=== PATIENT | female | born 2005 | race Hispanic/Latino ===

== ENCOUNTER 2024-07-15 22:45 | Emergency (ER) | payer MEDICAID ==
[2024-07-15] MEDS ORDERED: Ondansetron PF 4 MG/2 ML Vial ONE (23:11)
[2024-07-15 23:38] LABS: Anion Gap 15 mmol/L (10-20); BUN (Urea Nitrogen) 5 mg/dL (7.0-18.7); Calc. Creatinine Clearance 0 mL/min (70-130); Carbon Dioxide 19 mmol/L (22-29); Chloride 104 mmol/L (98-107); Estimated GFR 131; Glucose 101 mg/dL (70-105); Potassium 3.4 mmol/L (3.5-5.1); Sodium 135 mmol/L (136-145)
== END 2024-07-16 01:01 | disposition home or self-care (01) ==
LOC: CSHERS 22:45
DX: O21.0 Mild hyperemesis gravidarum (principal); Z3A.12 12 weeks gestation of pregnancy
CPT/HCPCS: 36415; 76856; 80048; 80053; 81001; 83690; 84702; 85025; 87086; 87428; 96361; 96374; J2405; Q0162